=== PATIENT | male | born 1965 | race Caucasian/White ===

== ENCOUNTER 2021-11-24 08:55 | Outpatient (REF) | payer OTHER, SELFPAY ==
[2021-11-24 15:03] LABS: HCT 49.5 % (40.0-50.0); HGB 17.1 g/dL (13.5-17.5); MCHC 34.5 % (32.0-36.0); MCV 89.7 fL (80-95); MPV 12.6 fL (8.0-11.0); Platelet Count 194 10^3/uL (130-400); RBC 5.52 10^6/uL (4.36-5.78); RDW 12.5 % (11.8-14.1); WBC 5.73 10^3/uL (4.4-10.8)
[2021-11-24 15:36] LABS: ALT 25 U/L (16-63); AST 15 U/L (15-37); Albumin 4.7 g/dL (3.4-5.0); Alkaline Phosphatase 57 U/L (46-116); Anion Gap 8.9 mmol/L (3-11); BUN 21 mg/dL (7-18); Bilirubin, Total 0.9 mg/dL (0.2-1.0); CO2 32.1 mmol/L (21.0-32.0); CREATININE 1.2 mg/dL (0.70-1.30); Calcium 9.5 mg/dL (8.5-10.1); Calculated LDL 165 mg/dL (<100); Chloride 105 mmol/L (98-107); Cholesterol 249 mg/dL (<200); Glucose 102 mg/dL (74-106); HDL Cholesterol 56 mg/dL (40-60); Potassium 4.5 mmol/L (3.5-5.1); Sodium 146 mmol/L (136-145); Total Protein 7.7 g/dL (6.4-8.2); Triglyceride 140 mg/dL (<150)
== END 2021-11-24 08:56 | disposition home or self-care (01) ==
LOC: NCHCN 08:55
PROVIDERS: Visit Provider Family Medicine
DX: E78.5 Hyperlipidemia, unspecified (principal); R73.03 Prediabetes; R03.0 Elevated blood-pressure reading, without diagnosis of hypertension
CPT/HCPCS: 80053; 80061; 85027